=== PATIENT | female | born 1990 | race Caucasian/White ===

== ENCOUNTER 2022-04-04 17:25 | Emergency (ER) | payer BC ==
[~2022-04-04] VITALS: Ht 157.4 cm; Wt 63.5 kg
[2022-04-04] MEDS ORDERED: XARELTO10 MG PO (18:28)
[2022-04-05] MEDS ORDERED: METHYLPRED-DP4 MG PO (09:06)
[2022-04-05] MEDS ORDERED: CYCLOBENZAPRINE5 M3 PO (09:06)
[2022-04-05] MEDS ORDERED: SUMATRIPTAN SUC25 M1 PO (09:06)
[2022-04-05] MEDS ORDERED: LEVOTHYROXINE112 MCG PO (09:07)
== END 2022-04-04 18:42 | disposition home or self-care (01) ==
LOC: ED 17:25
DX: I82.812 Embolism and thrombosis of superficial veins of left lower extremity (principal); Z88.7 Allergy status to serum and vaccine

== ENCOUNTER 2022-04-05 07:21 | Inpatient (IN) | payer BC ==
[~2022-04-05] VITALS: Ht 157.4 cm; Wt 65.1 kg
[~2022-04-05 07:21] MED LIST: XARELTO10 MG PO
[2022-04-05 07:33] VITALS: BP 111/98
[2022-04-05 07:48] LABS: BASO # 0.1 10*3/uL (0.0-0.1); EOS # 0.1 10*3/uL (0.0-0.4); EOS % 1.3 % (1.0-4.0); HEMATOCRIT 41.1 % (37.0-47.0); LYMPH # 3.4 10*3/uL (1.3-4.4); LYMPH % 32.6 % (27.0-41.0); MEAN CELL VOLUME 89.3 fl (81.0-99.0); MEAN CORPUSCULAR HGB 29.6 pg (27.0-31.0); MEAN CORPUSCULAR HGB CONC 33.1 g/dl (33.0-37.0); MEAN PLATELET VOLUME 9.2 fl (9.6-12.3); MONO # 1.1 10*3/uL (0.1-1.0); MONO % 10.8 % (3.0-9.0); NEUT # 5.6 10*3/uL (2.3-7.9); NEUT % 53.8 % (47.0-73.0); PLATELET COUNT AUTOMATED 277 10*3/uL (130-400); RED CELL DISTRI WIDTH 12.6 % (0-14.5); WHITE BLOOD COUNT 10.5 10*3/uL (4.8-10.8)
[2022-04-05 08:04] LABS: ALKALINE PHOSPHATASE 31 U/L (45-117); BUN 16 mg/dl (7-24); CHLORIDE 107 mmol/L (98-107); CREATININE 0.73 mg/dL (0.55-1.02); POTASSIUM 3.8 mmol/L (3.5-5.1); SGOT/AST 8 IU/L (3-35); SGPT/ALT 19 U/L (12-78); SODIUM 141 mmol/L (136-145); TOTAL PROTEIN 7.3 gm/dL (6.4-8.2)
[2022-04-05 08:07] LABS: B-hCG (QUALITATIVE) NEGATIVE (NEGATIVE)
[2022-04-05 08:42] LABS: ACT PARTIAL THROMBO TIME 23.8 SECONDS (20.0-32.1)
[2022-04-05] MEDS ORDERED: CYCLOBENZAPRINE5 M3 PO (09:06)
[2022-04-05] MEDS ORDERED: SUMATRIPTAN SUC25 M1 PO (09:06)
[2022-04-05] MEDS ORDERED: METHYLPRED-DP4 MG PO (09:06)
[2022-04-05] MEDS ORDERED: LEVOTHYROXINE112 MCG PO (09:07)
[2022-04-05 10:59] VITALS: BP 115/70
[2022-04-05 11:30] VITALS: BP 129/76
[2022-04-05 16:00] VITALS: BP 112/59
[2022-04-05 20:00] VITALS: BP 99/59
[2022-04-06] VITALS: BP 113/70
[2022-04-06 04:43] VITALS: BP 111/71
[2022-04-06 06:32] LABS: BASO # 0.1 10*3/uL (0.0-0.1); EOS # 0.2 10*3/uL (0.0-0.4); EOS % 2.5 % (1.0-4.0); HEMATOCRIT 42.8 % (37.0-47.0); LYMPH # 1.5 10*3/uL (1.3-4.4); LYMPH % 16.5 % (27.0-41.0); MEAN CELL VOLUME 89.9 fl (81.0-99.0); MEAN CORPUSCULAR HGB 28.8 pg (27.0-31.0); MEAN PLATELET VOLUME 9.3 fl (9.6-12.3); MONO % 10.4 % (3.0-9.0); NEUT # 6.5 10*3/uL (2.3-7.9); NEUT % 69.1 % (47.0-73.0); PLATELET COUNT AUTOMATED 255 10*3/uL (130-400); RED BLOOD COUNT 4.76 10*6/uL (4.10-5.10); RED CELL DISTRI WIDTH 12.4 % (0-14.5); WHITE BLOOD COUNT 9.3 10*3/uL (4.8-10.8)
[2022-04-06 06:44] LABS: BUN 13 mg/dl (7-24); CHLORIDE 109 mmol/L (98-107); CHOLESTEROL 169 mg/dL (<200); FREE T4 1.37 ng/dl (0.76-1.46); LDL CHOLESTEROL 82 mg/dL (9-159); POTASSIUM 4.1 mmol/L (3.5-5.1); SODIUM 142 mmol/L (136-145); TRIGLYCERIDES 125 mg/dl (<150)
[2022-04-06 08:00] VITALS: BP 110/73
[2022-04-06 12:00] VITALS: BP 111/65
[2022-04-06] MEDS ORDERED: XARELTO1 EACH PO (13:59)
[2022-04-06] MEDS ORDERED: XARELTO20 M1 PO (13:59)
== END 2022-04-06 17:17 | disposition home or self-care (01) | DRG 299 ==
LOC: ED 07:21 → EDHOLD 10:29 → 4E 10:29
PROVIDERS: Emergency Medicine; Registered Nurse; ADMIT Internal Medicine; ATTEND Internal Medicine
DX: I82.452 Acute embolism and thrombosis of left peroneal vein (principal); I26.94 Multiple subsegmental thrombotic pulmonary emboli without acute cor pulmonale; I82.622 Acute embolism and thrombosis of deep veins of left upper extremity; E03.9 Hypothyroidism, unspecified; I82.462 Acute embolism and thrombosis of left calf muscular vein; G43.909 Migraine, unspecified, not intractable, without status migrainosus; Z88.7 Allergy status to serum and vaccine; Z82.49 Family history of ischemic heart disease and other diseases of the circulatory system; Z82.3 Family history of stroke; Z83.2 Family history of diseases of the blood and blood-forming organs and certain disorders involving the immune mechanism; Z83.3 Family history of diabetes mellitus

== ENCOUNTER 2022-11-27 15:03 | Emergency (ER) | payer BC ==
[~2022-11-27 15:03] MED LIST changes: +CYCLOBENZAPRINE5 M3 PO; +LEVOTHYROXINE112 MCG PO; +METHYLPRED-DP4 MG PO; +SUMATRIPTAN SUC25 M1 PO; +XARELTO1 EACH PO; +XARELTO20 M1 PO
[2022-11-27] MEDS ORDERED: Lovenox80 MG/0.8 SC (17:15)
== END 2022-11-27 18:40 | disposition home or self-care (01) ==
LOC: ED 15:03
DX: O22.21 Superficial thrombophlebitis in pregnancy, first trimester (principal); Z88.7 Allergy status to serum and vaccine; Z79.899 Other long term (current) drug therapy; Z90.89 Acquired absence of other organs; Z3A.01 Less than 8 weeks gestation of pregnancy

== ENCOUNTER 2024-02-11 06:33 | Emergency (ER) | payer BC ==
[~2024-02-11] VITALS: Ht 157.4 cm; Wt 67.6 kg
[~2024-02-11 06:33] MED LIST changes: +Lovenox80 MG/0.8 SC
[2024-02-11] MEDS ORDERED: SYNTHROID,LEV125 MCG PO (06:41)
[2024-02-11] MEDS ORDERED: ENOXAPARIN40 MG/0.2 SQ (06:41)
[2024-02-11 07:43] LABS: BASO # 0.1 10*3/uL (0.0-0.1); BASO % 0.8 % (0.0-1.0); EOS # 0.1 10*3/uL (0.0-0.4); EOS % 1.3 % (1.0-4.0); HEMATOCRIT 40.6 % (37.0-47.0); LYMPH # 1.8 10*3/uL (1.3-4.4); LYMPH % 20.3 % (27.0-41.0); MEAN CELL VOLUME 88.1 fl (81.0-99.0); MEAN CORPUSCULAR HGB 28.4 pg (27.0-31.0); MEAN CORPUSCULAR HGB CONC 32.3 g/dl (33.0-37.0); MEAN PLATELET VOLUME 8.9 fl (9.6-12.3); MONO # 0.9 10*3/uL (0.1-1.0); MONO % 9.7 % (3.0-9.0); NEUT # 5.9 10*3/uL (2.3-7.9); NEUT % 67.4 % (47.0-73.0); PLATELET COUNT AUTOMATED 295 10*3/uL (130-400); RED BLOOD COUNT 4.61 10*6/uL (4.10-5.10); RED CELL DISTRI WIDTH 13.2 % (0-14.5); WHITE BLOOD COUNT 8.7 10*3/uL (4.8-10.8)
[2024-02-11 08:24] LABS: BUN 10 mg/dl (9-23); CHLORIDE 106 mmol/L (98-107); POTASSIUM 4.2 mmol/L (3.4-5.1)
[2024-02-11 09:13] LABS: BILIRUBIN Negative (Negative); BLOOD Negative (Negative); CLARITY Clear (Clear); COLOR Yellow (Yellow); GLUCOSE Negative (Negative); KETONE Negative (Negative); LEUKO ESTERASE Negative (Negative); NITRITE Negative (Negative); PH 5.5 (4.5-8.0); UROBILINOGEN 0.2 E.U./dl (0.0-1.0)
[2024-02-11 09:40] LABS: BACTERIA 2+; WBC 0-2 wbc/hpf (0-5)
[2024-02-12] MEDS ORDERED: Lovenox40 MG/0.4 PO (11:17)
== END 2024-02-11 12:09 | disposition home or self-care (01) ==
LOC: ED 06:33
PROVIDERS: Emergency Medicine
DX: O22.21 Superficial thrombophlebitis in pregnancy, first trimester (principal); O46.91 Antepartum hemorrhage, unspecified, first trimester; E03.9 Hypothyroidism, unspecified; R10.2 Pelvic and perineal pain; Z3A.01 Less than 8 weeks gestation of pregnancy; Z88.7 Allergy status to serum and vaccine; Z90.89 Acquired absence of other organs; Z79.899 Other long term (current) drug therapy

== ENCOUNTER 2024-02-12 11:02 | Emergency (ER) | payer BC ==
[~2024-02-12] VITALS: Ht 157.4 cm; Wt 68.0 kg
[~2024-02-12 11:02] MED LIST changes: +ENOXAPARIN40 MG/0.2 SQ; +SYNTHROID,LEV125 MCG PO
[2024-02-12] MEDS ORDERED: Lovenox40 MG/0.4 PO (11:17)
[2024-02-12 12:07] LABS: BASO # 0.1 10*3/uL (0.0-0.1); BASO % 0.9 % (0.0-1.0); EOS # 0.2 10*3/uL (0.0-0.4); EOS % 1.6 % (1.0-4.0); HEMATOCRIT 38.5 % (37.0-47.0); LYMPH # 1.8 10*3/uL (1.3-4.4); LYMPH % 19.6 % (27.0-41.0); MEAN CELL VOLUME 88.7 fl (81.0-99.0); MEAN CORPUSCULAR HGB 28.3 pg (27.0-31.0); MEAN CORPUSCULAR HGB CONC 31.9 g/dl (33.0-37.0); MEAN PLATELET VOLUME 9.1 fl (9.6-12.3); MONO % 10.3 % (3.0-9.0); NEUT # 6.3 10*3/uL (2.3-7.9); NEUT % 67.3 % (47.0-73.0); PLATELET COUNT AUTOMATED 281 10*3/uL (130-400); RED BLOOD COUNT 4.34 10*6/uL (4.10-5.10); RED CELL DISTRI WIDTH 13.1 % (0-14.5); WHITE BLOOD COUNT 9.4 10*3/uL (4.8-10.8)
[2024-02-12 12:27] LABS: BUN 10 mg/dl (9-23); CHLORIDE 108 mmol/L (98-107); POTASSIUM 4.2 mmol/L (3.4-5.1)
== END 2024-02-12 13:17 | disposition home or self-care (01) ==
LOC: ED 11:02
PROVIDERS: Physician Assistant Medical
DX: O22.21 Superficial thrombophlebitis in pregnancy, first trimester (principal); R06.02 Shortness of breath; R10.2 Pelvic and perineal pain; Z3A.01 Less than 8 weeks gestation of pregnancy; Z88.7 Allergy status to serum and vaccine; Z90.89 Acquired absence of other organs

== ENCOUNTER 2024-12-13 19:55 | Emergency (ER) | payer BC ==
[~2024-12-13] VITALS: Wt 76.2 kg
[~2024-12-13 19:55] MED LIST changes: +Lovenox40 MG/0.4 PO
[2024-12-13 20:55] LABS: BASO # 0.0 10*3/uL (0.0-0.1); BASO % 0.4 % (0.0-1.0); EOS # 0.6 10*3/uL (0.0-0.4); EOS % 6.6 % (1.0-4.0); MEAN CELL VOLUME 85.2 fl (81.0-99.0); MEAN CORPUSCULAR HGB 26.9 pg (27.0-31.0); MEAN PLATELET VOLUME 9.2 fl (9.6-12.3); MONO # 0.8 10*3/uL (0.1-1.0); MONO % 9.1 % (3.0-9.0); NEUT # 4.9 10*3/uL (2.3-7.9); NEUT % 55.5 % (47.0-73.0); NUCLEATED RED BLOOD CELL 0.0 % (0.0-0.0); NUCLEATED RED BLOOD CELL 0.0 10*3/uL (0.0-0.0); PLATELET COUNT AUTOMATED 311 10*3/uL (130-400); RED CELL DISTRI WIDTH 14.9 % (0-14.5)
[2024-12-13 21:16] LABS: BUN 18 mg/dl (9-23); SGPT/ALT 23 U/L (5-49)
== END 2024-12-13 23:29 | disposition left against medical advice (07) ==
LOC: ED 19:55
PROVIDERS: Emergency Medicine
DX: R07.89 Other chest pain (principal); E03.9 Hypothyroidism, unspecified; Z79.899 Other long term (current) drug therapy; Z88.7 Allergy status to serum and vaccine; Z98.890 Other specified postprocedural states